=== PATIENT | male | born 1970 | race Caucasian/White ===

== ENCOUNTER 2016-10-30 07:01 | Emergency (ER) | payer MEDICAID ==
[~2016-10-30] VITALS: Ht 175.3 cm; Wt 84.0 kg
[2016-10-30 07:04] VITALS: Ht 175.3 cm; Wt 84.0 kg
[2016-10-30] MEDS ORDERED: morphine 4 MG/ML VIAL IV STA (07:10)
[2016-10-30] MEDS ORDERED: ONDANSETRON 4 MG INJ IV STA ×4 (07:10→10:41)
--- NOTE | 2016-10-30 07:26 | ERA ---
ER Documentation Chief Complaint Date/Time DATE: 10/30/16 TIME: 07:23 Chief Complaint LLQ PAIN W/NAUSEA X2 DAYS HPI This is a 46-year-old male with no past medical history that presents to the emergency department complaining of severe persistent left lower quadrant pain for the past 3 days. 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 The patient is going to hospital and was diagnosed with appendicitis. The patient had an appendectomy. Indicated he stayed in the hospital in [place] for 2 days but left AGAINST MEDICAL ADVICE as he had to finish driving the truck with his father. Therefore the patient removed his domenica on his own and has not received any postoperative care. He states he has had no fevers or shaking or chills but over the past 3 days has had a persistent left lower quadrant pain which is a sharp shooting pain. The pain does not radiate to his back. He denies any hemoptysis hematemesis or melanotic stools. He has been experience in flatulence and no constipation. He is felt nauseous. He did not take any analgesic medication prior to arrival. He indicates his last meal was 12 hours prior to arrival but has had a decrease in appetite since the onset of his pain. He denies any shortness of breath at rest or exertion. He denies any swelling of his lower extremities. He has no chest pain or pressure that radiates to the neck arm back or jaw. Patient's past surgical history other than his appendectomy includes to lower back fusion surgeries several years prior to arrival. The patient quit tobacco 4 months ago. He denies illicit drug use or alcohol use ROS All systems reviewed and are negative except as per history of present illness. Medications Home Meds No Active Prescriptions or Reported Meds Allergies Allergies: Coded Allergies: ibuprofen (Unverified Allergy, Unknown, RASH & TONGUE SWELLING, 10/30/16) ketorolac (Unverified Allergy, Unknown, RASH, TONGUE SWELLING, 10/30/16) Physical Exam Vitals Vital Signs Date Time Temp Pulse Resp B/P Pulse Ox O2 Delivery O2 Flow Rate FiO2 10/30/16 07:41 Nasal Cannula 2 10/30/16 07:04 97.6 85 20 194/110 99 Physical Exam Constitutional:Well-developed. Well-nourished. HEENT:Normocephalic. Atraumatic.Pupils were equal round reactive to light. Dry mucous membranes.No tonsillar exudates. Neck: No nuchal rigidity. No lymphadenopathy. No posterior cervical spine tenderness or step-offs. Respiratory: Not using accessory muscles of respiration.Lungs were clear to auscultation bilaterally. No rhonchi. No rales. No wheezing. Cardiovascular: Regular rate regular rhythm.No murmurs. No rubs were appreciated.S1, S2 normal. Distal pulses are palpable 2+ bilaterally. GI: Abdomen was soft. Tenderness in the left lower quadrant with no rebound and voluntary guarding. Non Distended. No pulsatile abdominal masses or bruits. Bowel sounds were present and normal. Muscle skeletal: Full range of motion of both the upper and lower extremities bilaterally.Normal muscle tone.No assymetrical calf tenderness or swelling. Skin: No petechia, no purpura. No lesions on the palms or the soles of the feet. No maculopapular rash. NEURO: Patient was alert, awake, orientated x3.No facial droop. Gait observed and normal with no ataxia.Speech had regular rate and rhythm. No focal neurological deficits. Result Diagram: 10/30/16 0735 10/30/16 0735 Results 24 hrs Laboratory Tests Test 10/30/16 07:35 10/30/16 07:50 White Blood Count 5.010^3/ul Red Blood Count 3.7910^6/ul Hemoglobin 12.8g/dl Hematocrit 36.8% Mean Corpuscular Volume 97.1fl Mean Corpuscular Hemoglobin 33.8pg Mean Corpuscular Hemoglobin Concent 34.8g/dl Red Cell Distribution Width 13.2% Platelet Count 73101^3/UL Mean Platelet Volume 10.9fl Neutrophils % 62.8% Lymphocytes % 21.5% Monocytes % 9.3% Eosinophils % 5.2% Basophils % 0.8% Nucleated Red Blood Cells % 0.0/100WBC Neutrophils # 3.110^3/ul Lymphocytes # 1.110^3/ul Monocytes # 0.510^3/ul Eosinophils # 0.310^3/ul Basophils # 0.010^3/ul Nucleated Red Blood Cells # 0.010^3/ul Prothrombin Time 11.7Sec Prothrombin Time Ratio 0.9 INR International Normalized Ratio 0.86 Activated Partial Thromboplast Time 29.1Sec Sodium Level 136mmol/L Potassium Level 3.7mmol/L Chloride Level 102mmol/L Carbon Dioxide Level 27mmol/L Anion Gap 11 Blood Urea Nitrogen 9mg/dl Creatinine 0.64mg/dl Glucose Level 82mg/dl Calcium Level 8.8mg/dl Total Bilirubin 0.2mg/dl Direct Bilirubin 0.00mg/dl Indirect Bilirubin 0.2mg/dl Aspartate Amino Transf (AST/SGOT) 20IU/L Alanine Aminotransferase (ALT/SGPT) 24IU/L Alkaline Phosphatase 59IU/L Troponin I < 0.012ng/ml Total Protein 7.3g/dl Albumin 4.2g/dl Globulin 3.10g/dl Albumin/Globulin Ratio 1.35 Amylase Level 36U/L Lipase 45U/L Urine Color LT. YELLOW Urine Clarity CLEAR Urine pH 7.5 Urine Specific [place] 1.015 Urine Ketones NEGATIVE Urine Nitrite NEGATIVE Urine Bilirubin NEGATIVE Urine Urobilinogen 0.2 E.U./dL Urine Leukocyte Esterase NEGATIVE Urine Hemoglobin NEGATIVE Urine Glucose NEGATIVE% Urine Total Protein NEGATIVE Current Medications Medications (Trade) Dose Ordered Sig/Michelle Route PRN Reason Start Time Stop Time Status Last Admin Dose Admin Morphine Sulfate (morphine) 4 mg ONCE STAT IV 10/30/16 07:10 10/30/16 07:12 DC 10/30/16 07:33 Ondansetron HCl (Zofran Inj) 4 mg ONCE STAT IV 10/30/16 07:10 10/30/16 07:12 DC 10/30/16 07:32 Hydromorphone HCl (Dilaudid) 1 mg ONCE STAT IV 10/30/16 08:14 10/30/16 08:15 DC 10/30/16 08:20 Ondansetron HCl (Zofran Inj) 4 mg ONCE STAT IV 10/30/16 08:14 10/30/16 08:15 DC 10/30/16 08:20 IV Flush 10 ml 10 ml STK-MED ONCE .ROUTE 10/30/16 08:57 10/30/16 08:58 DC 10/30/16 09:19 Sodium Chloride (NS) 100 ml @ ud STK-MED ONCE .ROUTE 10/30/16 08:57 10/30/16 08:58 DC 10/30/16 09:19 Iohexol (Omnipaque 300mg/ ml) 30 ml STK-MED ONCE .ROUTE 10/30/16 08:57 10/30/16 08:58 DC 10/30/16 09:20 Hydromorphone HCl (Dilaudid) 1 mg ONCE STAT IV 10/30/16 09:28 10/30/16 09:29 DC 10/30/16 09:38 Ondansetron HCl 4 mg 4 mg ONCE STAT IV 10/30/16 09:28 10/30/16 09:29 DC 10/30/16 09:38 Sodium Chloride (NS) 1,000 ml @ 1,000 mls/hr Q1H STAT IV 10/30/16 09:55 10/30/16 10:54 Procedures/MDM This patient presented to the emergency department with abdominal pain and was seen and evaluated by myself. My differential diagnosis included but was not limited to abdominal aortic aneurysm, appendicitis, pancreatitis, perforated peptic ulcer, perforated viscus, Boerhaaves syndrome or visceral pain such as diverticulitis, DKA, esophagitis, hepatitis or bowel obstruction. The patient was placed on a play therapist, continuous pulse oximetry, and IV access was established by nursing staff. Patient received intravenous morphine and Zofran. I obtained a 12-lead EKG tracing to rule out atypical myocardial infarction and was reviewed by myself which showed: Normal sinus rhythm of 72 bpm and no arrhythmia. NM interval normal. QRS duration normal. No ST segment elevation No ST segment depression. No changes consistent with acute ischemia. I obtained a CT scan of the abdomen due to the severity of the patient's pain. This was reviewed by myself and the radiologist and indicated the followin. Aortoiliac atherosclerotic calcifications are present. 2. The patient is status post appendectomy. 3. Small bilateral fat containing inguinal hernias are noted without incarceration. 4. No urolithiasis or obstructive uropathy is seen. 5. No mass, lymphadenopathy, or focal acute inflammatory process is identified. Please note that the patient was hypertensive upon arrival into the emergency department but showed no signs of endorgan damage to suggest hypertensive emergency or urgency. The patient's blood pressure improved after analgesic medication. The patient received IV morphine Dilaudid Zofran with improvement of his pain. I indicated to the patient that there did not appear to be in a surgical abdomen at this time. There is no evidence of urinary tract infection. There is no leukocytosis. There is no evidence of renal failure or obstructive uropathy. The patient had no physical exam findings to suggest obstruction and CT scan was negative for a postoperative abscess. The patient stated he felt comfortable being discharged home. He received IV fluid resuscitation for his mild clinical dehydration. His nausea completely resolved with antiemetics. He will be sent home with analgesic medication if needed for as needed. The patient was discharged home in fair condition. They were instructed to return to the emergency department at any time if there was any worsening of their condition. The patient stated they would follow up with their PCP in the next 24 -48 hours to initiate a suitable medication regimen under the care of their PCP as well as to allow their PCP to monitor any drug reactions. The patient was discharged home with prescriptions after they gave informed consent to the new medication. They were also fully informed by myself on the adverse effects and adverse drug interactions in order to provide adequate safeguards to prevent possible adverse reactions to medications. Departure Diagnosis: Primary Impression: Abdominal pain Qualified Code: R10.32 - Left lower quadrant pain Condition: CECELIA Gibson Oct 30, 2016 07:26
[2016-10-30 07:54] LABS: ADD SCAN DIFF NO
[2016-10-30 08:02] LABS: BASOPHILS % 0.8 % (0.0-2.0); EOSINOPHILS # 0.3 10^3/ul (0.0-0.5); EOSINOPHILS % 5.2 % (0.0-7.0); HEMATOCRIT 36.8 % (42.0-52.0); HEMOGLOBIN 12.8 g/dl (14.0-18.0); LYMPHOCYTES # 1.1 10^3/ul (0.8-2.9); LYMPHOCYTES % 21.5 % (15.0-51.0); MEAN CORPUSCULAR HEMOGLOBIN 33.8 pg (29.0-33.0); MEAN CORPUSCULAR HGB CONC 34.8 g/dl (32.0-37.0); MEAN CORPUSCULAR VOLUME 97.1 fl (82.0-101.0); MEAN PLATELET VOLUME 10.9 fl (7.4-10.4); MONOCYTE # 0.5 10^3/ul (0.3-0.9); MONOCYTES % 9.3 % (0.0-11.0); NEUTROPHIL # 3.1 10^3/ul (1.6-7.5); NEUTROPHILS % 62.8 % (39.0-77.0); PLATELET COUNT 216 10^3/UL (140-415); RED BLOOD COUNT 3.79 10^6/ul (4.70-6.10); RED CELL DISTRIBUTION WIDTH 13.2 % (11.5-14.5)
[2016-10-30 08:07] LABS: INR 0.86; PARTIAL THROMBOPLASTIN TIME 29.1 Sec (25.0-35.0); PROTIME 11.7 Sec (12.2-14.2); PT RATIO 0.9
[2016-10-30 08:10] LABS: ALBUMIN 4.2 g/dl (3.3-4.9); CHLORIDE 102 mmol/L (97-110); SODIUM 136 mmol/L (135-144)
[2016-10-30 08:11] LABS: POTASSIUM 3.7 mmol/L (3.5-5.1)
[2016-10-30 08:12] LABS: AMYLASE 36 U/L (11-123)
[2016-10-30 08:13] LABS: ALANINE AMINOTRANSFERASE 24 IU/L (13-69); ALBUMIN/GLOBULIN RATIO 1.35; ALKALINE PHOSPHATASE 59 IU/L (42-121); ANION GAP 11 (8-16); ASPARTATE AMINO TRANSFERASE 20 IU/L (15-46); BILIRUBIN,INDIRECT 0.2 mg/dl (0-1.1); BILIRUBIN,TOTAL 0.2 mg/dl (0.2-1.3); BLOOD UREA NITROGEN 9 mg/dl (7-20); CALCIUM 8.8 mg/dl (8.4-10.2); CARBON DIOXIDE 27 mmol/L (21-31); CREATININE 0.64 mg/dl (0.61-1.24); GLUCOSE 82 mg/dl (70-220); TOTAL PROTEIN 7.3 g/dl (6.1-8.1)
[2016-10-30] MEDS ORDERED: HYDROmorphONE 1 MG/ML SYG IV STA ×3 (08:14→10:41)
[2016-10-30 08:28] LABS: TROPONIN-I < 0.012 ng/ml (0.00-0.12)
[2016-10-30 08:29] LABS: ADD UMIC NO; URINE BILIRUBIN (Dip) NEGATIVE (NEGATIVE); URINE BLOOD (Dip) NEGATIVE (NEGATIVE); URINE COLOR LT. YELLOW (YELLOW); URINE GLUCOSE (Dip) NEGATIVE (NEGATIVE); URINE KETONES (Dip) NEGATIVE (NEGATIVE); URINE LEUKOCYTE ESTERASE (Dip) NEGATIVE (NEGATIVE); URINE NITRITE (Dip) NEGATIVE (NEGATIVE); URINE TOTAL PROTEIN (Dip) NEGATIVE (NEGATIVE); URINE UROBILINOGEN (Dip) 0.2 E.U./dL (0.1-1.0)
[2016-10-30] MEDS ORDERED: SOD CHLORIDE 0.9% 100 ML ONE (08:57)
[2016-10-30] MEDS ORDERED: IOHEXOL 300MG/ML 30 ML BTL ONE (08:57)
--- NOTE | 2016-10-30 09:29 | RADRPT ---
PROCEDURE: CT Abdomen and Pelvis with contrast. CLINICAL INDICATION: Left lower quadrant pain TECHNIQUE: CT of the abdomen and pelvis was performed on a multi-detector scanner following the un complicated IV administration of 100 cc of Omnipaque 300. Coronal and sagittal images were reformat tasha from the axial data set. One or more of the following dose reduction techniques were used: auto mated exposure control, adjustment of the mA and/or kV according to patient size, use of iterative reconstruction technique. CTDI = 14.54 mGy. DLP = 858.98 mGy-cm. COMPARISON: None. FINDINGS: CT abdomen: The lung bases are clear. The heart size is normal, without pericardial effusion. Liver, gallbladd er, biliary tree, pancreas, spleen, adrenal glands and kidneys are unremarkable. There is no urolit hiasis or obstructive uropathy. The stomach is grossly unremarkable. There is no abdominal aortic aneurysm or dissection. Aortic vascular calcifications are present. T here is no retroperitoneal lymphadenopathy. The laura hepatis region is clear. CT pelvis: No bowel obstruction, free intraperitoneal air or abscess is identified. There is no diverticulosis , diverticulitis or colitis. The patient is status post appendectomy. Urinary bladder is grossly u nremarkable. No pelvic mass, free fluid or lymphadenopathy is identified. Small bilateral fat cont aining inguinal hernias are noted without incarceration. The surrounding osseous structures are remarkable for degenerative spondylosis of the spine. No ost eolytic or osteoblastic lesion is detected. There is surgical fusion of L4-S1. IMPRESSION: 1. Aortoiliac atherosclerotic calcifications are present. 2. The patient is status post appendectomy. 3. Small bilateral fat containing inguinal hernias are noted without incarceration. 4. No urolithiasis or obstructive uropathy is seen. 5. No mass, lymphadenopathy, or focal acute inflammatory process is identified. RPTAT: EE .Erick Darling MD, MD Date Time Electronically viewed and signed by .Erick Darling MD, MD on 10/30/2016 09:28 .R/
[2016-10-30] MEDS ORDERED: SOD CHLORIDE 0.9% 1,000 ML IV STA (09:55)
[2016-10-30] MEDS ORDERED: HYDR-906 PO (10:27)
[2016-10-30] MEDS ORDERED: ONDA4TAB14 PO (10:27)
[2016-10-30] MEDS ORDERED: DOCU-144 PO (10:27)
[2016-10-30 11:10] VITALS: BP 145/98; PULSE 74; RESP 19; TEMP 98.3
== END 2016-10-30 11:39 | disposition home or self-care (01) ==
LOC: E/R 07:01
DX: R10.32 Left lower quadrant pain (principal); R11.0 Nausea
CPT/HCPCS: 36415; 74177; 80053; 81003; 82150; 83690; 84484; 85025; 85610; 85730; 87040; 87086; 93005; 96374; 96375; 96376; J1170; J2270; J2405; J7030; Q9967; Z7502; Z7610

== ENCOUNTER 2016-10-31 07:32 | Emergency (ER) | payer MEDICAID ==
[~2016-10-31] VITALS: Wt 81.8 kg
[~2016-10-31 07:32] MED LIST: DOCU-144 PO; HYDR-906 PO; ONDA4TAB14 PO
[2016-10-31] MEDS ORDERED: SOD CHLORIDE 0.9% 1,000 ML IV STA (07:41)
[2016-10-31] MEDS ORDERED: FAMOTIDINE 20 MG INJ IV STA (07:41)
[2016-10-31] MEDS ORDERED: HYDROmorphONE 1 MG/ML SYG IV STA ×2 (07:41→09:45)
[2016-10-31] MEDS ORDERED: ONDANSETRON 4 MG INJ IV STA ×2 (07:41→09:45)
--- NOTE | 2016-10-31 07:56 | ERA ---
ER Documentation Chief Complaint Date/Time DATE: 10/31/16 TIME: 07:42 Chief Complaint seen in er for same abdominal pain. nausea no vomiting. not bettter today HPI This is a 46-year-old male with no past medical history that returns to the emergency department complaining of continuing persistent left lower quadrant pain. The patient had been seen and evaluated by myself yesterday for severe left lower quadrant pain that began 4 days prior to arrival. The patient had been treated with IV opiates and IV fluids with resolution of his pain. I also obtained a CT scan of the abdomen which showed no evidence of appendicitis, small bowel obstruction, diverticulitis or perforation. 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 The patient had been given a prescription of Manito for analgesic control but indicates he was unable to have this filled as he had lost his wallet. The patient indicates he has not had any diarrhea or constipation. The patient indicates he had relief of the pain for several hours after he left the hospital but the same pain began in the left lower quadrant. He had an episode of nonbloody nonbilious emesis roughly 2 hours prior to arrival. He states the pain is 10 out of 10 in intensity. The pain does not radiate. It is a sharp shooting pain that is exacerbated with movement. 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 The patient is going to hospital and was diagnosed with appendicitis. The patient had an appendectomy. Indicated he stayed in the hospital in [place] for 2 days but left AGAINST MEDICAL ADVICE as he had to finish driving the truck with his father. Therefore the patient removed his domenica on his own and has not received any postoperative care. He denies any shortness of breath at rest or exertion. He denies any swelling of his lower extremities. He has no chest pain or pressure that radiates to the neck arm back or jaw. Patient's past surgical history other than his appendectomy includes to lower back fusion surgeries several years prior to arrival. The patient quit tobacco 4 months ago. He denies illicit drug use or alcohol use ROS All systems reviewed and are negative except as per history of present illness. Medications Home Meds Active Scripts Ondansetron (Ondansetron Odt) 4 Mg Tab.rapdis, 4 MG PO Q6H Y for NAUSEA AND/OR VOMITING, #10 TAB Prov:CECELIA BURNETT 10/30/16 Docusate Sodium* (Colace*) 100 Mg Capsule, 100 MG PO TID, #30 CAP Prov:CECELIA BURNETT 10/30/16 Hydrocodone/Acetaminophen (Manito 5-325 Tablet) 1 Each Tablet, 1 TAB PO Q6H Y for PAIN, #20 TAB Prov:CECELIA BURNETT 10/30/16 Allergies Allergies: Coded Allergies: ibuprofen (Unverified Allergy, Unknown, RASH & TONGUE SWELLING, 10/30/16) ketorolac (Unverified Allergy, Unknown, RASH, TONGUE SWELLING, 10/30/16) PMhx/Soc Hx Alcohol Use: No Hx Substance Use: No Hx Tobacco Use: No Physical Exam Vitals Vital Signs Date Time Temp Pulse Resp B/P Pulse Ox O2 Delivery O2 Flow Rate FiO2 10/31/16 07:34 98.3 73 21 170/87 98 Physical Exam Constitutional:Well-developed. Well-nourished. HEENT:Normocephalic. Atraumatic.Pupils were equal round reactive to light. Moist mucous membranes.No tonsillar exudates. Neck: No nuchal rigidity. No lymphadenopathy. No posterior cervical spine tenderness or step-offs. Respiratory: Not using accessory muscles of respiration.Lungs were clear to auscultation bilaterally. No rhonchi. No rales. No wheezing. Cardiovascular: Regular rate regular rhythm.No murmurs. No rubs were appreciated.S1, S2 normal. Distal pulses are palpable 2+ bilaterally. GI: Abdomen was soft. Left lower quadrant tenderness with voluntary guarding. Non Distended. No pulsatile abdominal masses or bruits. No rebound. Bowel sounds were present and normal. Muscle skeletal: Full range of motion of both the upper and lower extremities bilaterally.Normal muscle tone.No assymetrical calf tenderness or swelling. Skin: No petechia, no purpura. No lesions on the palms or the soles of the feet. No maculopapular rash. NEURO: Patient was alert, awake, orientated x3.No facial droop. Gait observed and normal with no ataxia.Speech had regular rate and rhythm. No focal neurological deficits. Results 24 hrs Current Medications Medications (Trade) Dose Ordered Sig/Michelle Route PRN Reason Start Time Stop Time Status Last Admin Dose Admin Sodium Chloride (NS) 1,000 ml @ 1,000 mls/hr Q1H STAT IV 10/31/16 07:41 10/31/16 08:40 10/31/16 07:59 Hydromorphone HCl (Dilaudid) 2 mg ONCE STAT IV 10/31/16 07:41 10/31/16 07:43 DC 10/31/16 08:00 Ondansetron HCl (Zofran Inj) 4 mg ONCE STAT IV 10/31/16 07:41 10/31/16 07:43 DC 10/31/16 07:59 Famotidine (Pepcid Iv) 20 mg ONCE STAT IV 10/31/16 07:41 10/31/16 07:43 DC 10/31/16 07:59 Procedures/MDM This patient presented to the emergency department with abdominal pain and was seen and evaluated by myself. My differential diagnosis included but was not limited to abdominal aortic aneurysm, appendicitis, pancreatitis, perforated peptic ulcer, perforated viscus, Boerhaave's syndrome or visceral pain such as diverticulitis, DKA, esophagitis, hepatitis or bowel obstruction. The patient was placed on a patient support partner, continuous pulse oximetry, and IV access was established by nursing staff. The patient received IV Pepcid and Dilaudid and Zofran. The patient had had a CT scan of the abdomen performed yesterday which indicated no acute surgical abdomen or complication such as perforation, postoperative abscess or diverticulitis. The patient is no history of irritable bowel syndrome and has not experienced any cramping bloating or mixed diarrhea or constipation. The patient is not lactose intolerant and therefore unlikely his pain is a result of enzyme deficiency. The patient does not have a history of celiac's disease. There is no evidence of obstructive uropathy on the CT scan performed yesterday that could have been a result of nephrolithiasis causing his pain. The patient also has no history of Crohn's disease or ulcerative colitis and did not show any symptoms of Crohn's disease such as rectal bleeding, fever, weight loss, fatigue or bone loss. The CT scan performed yesterday did not indicate any signs of intestinal obstruction that could have been a result of scar tissue from the patient's recent appendectomy. The patient did not have a palpable inguinal or groin hernia. There is no overlying rash that could suggest shingles as a result of the pain. I will obtain a Clostridium difficile culture as the patient had been placed on IV antibiotics while in [place] but states he did not take any oral antibiotics such as fluoroquinolones, cephalosporins, penicillins and and therefore my clinical suspicion was low as he had not experienced any watery diarrhea but given that he had unexplainable abdominal cramping and tenderness, stool test for C differential will be obtained. The patient denied any testicular pain and no abnormal urethral discharge therefore unlikely the patient was experiencing abdominal pain secondary to gonorrhea chlamydia or testicular torsion. Upon reviewing the [facility] notification, the patient had been admitted September to [facility] for right lower quadrant pain and constipation. The patient also had been admitted to the medical surgical inpatient on September for left lower quadrant pain and also had a visit September 30, 2016 for [facility] for generalized abdominal pain. The patient complained of abdominal pain on October 07 2016 and was evaluated at [facility]. The patient had 2 visits to [facility] for left lower quadrant abdominal pain on October 09, 2016 and October 22, 2016. Patient was also seen at [facility] on October 23 and October 29, 2016. He has been seen by myself yesterday on October 30, [address] [facility]. At this time I approach the patient and indicated that there did not appear to be a surgical etiology at this time. Departure Diagnosis: Primary Impression: Intractable abdominal pain Condition: CECELIA Gibson Oct 31, 2016 07:55
[2016-10-31 08:10] LABS: ADD SCAN DIFF NO
[2016-10-31 08:27] LABS: BASOPHILS % 0.8 % (0.0-2.0); EOSINOPHILS # 0.4 10^3/ul (0.0-0.5); EOSINOPHILS % 7.7 % (0.0-7.0); HEMATOCRIT 39.7 % (42.0-52.0); HEMOGLOBIN 13.7 g/dl (14.0-18.0); INR 0.79; LYMPHOCYTES # 1.1 10^3/ul (0.8-2.9); LYMPHOCYTES % 23.6 % (15.0-51.0); MEAN CORPUSCULAR HEMOGLOBIN 33.6 pg (29.0-33.0); MEAN CORPUSCULAR HGB CONC 34.5 g/dl (32.0-37.0); MEAN CORPUSCULAR VOLUME 97.3 fl (82.0-101.0); MEAN PLATELET VOLUME 10.9 fl (7.4-10.4); MONOCYTE # 0.4 10^3/ul (0.3-0.9); MONOCYTES % 8.9 % (0.0-11.0); NEUTROPHIL # 2.8 10^3/ul (1.6-7.5); NEUTROPHILS % 58.8 % (39.0-77.0); PLATELET COUNT 228 10^3/UL (140-415); PT RATIO 0.9; RED BLOOD COUNT 4.08 10^6/ul (4.70-6.10); RED CELL DISTRIBUTION WIDTH 13.2 % (11.5-14.5); WHITE BLOOD COUNT 4.8 10^3/ul (4.8-10.8)
[2016-10-31 08:28] LABS: ALBUMIN 4.2 g/dl (3.3-4.9); PARTIAL THROMBOPLASTIN TIME 29.5 Sec (25.0-35.0)
[2016-10-31 08:29] LABS: POTASSIUM 3.9 mmol/L (3.5-5.1)
[2016-10-31 08:31] LABS: ALBUMIN/GLOBULIN RATIO 1.4; BILIRUBIN,INDIRECT 0.1 mg/dl (0-1.1); BILIRUBIN,TOTAL 0.1 mg/dl (0.2-1.3); CREATININE 0.67 mg/dl (0.61-1.24); TOTAL PROTEIN 7.2 g/dl (6.1-8.1)
[2016-10-31 08:32] LABS: CALCIUM 9.3 mg/dl (8.4-10.2)
[2016-10-31 09:29] LABS: ADD UMIC NO; URINE BILIRUBIN (Dip) NEGATIVE (NEGATIVE); URINE BLOOD (Dip) NEGATIVE (NEGATIVE); URINE COLOR LT. YELLOW (YELLOW); URINE GLUCOSE (Dip) NEGATIVE (NEGATIVE); URINE KETONES (Dip) NEGATIVE (NEGATIVE); URINE LEUKOCYTE ESTERASE (Dip) NEGATIVE (NEGATIVE); URINE NITRITE (Dip) NEGATIVE (NEGATIVE); URINE TOTAL PROTEIN (Dip) NEGATIVE (NEGATIVE); URINE UROBILINOGEN (Dip) 0.2 E.U./dL (0.1-1.0)
[2016-10-31 10:25] VITALS: BP 147/97; PULSE 80; RESP 16
[2016-10-31 13:27] LABS: BENZODIAZEPINES Negative (NEGATIVE)
[2016-10-31 13:35] LABS: BARBITURATES Negative (NEGATIVE); CANNABINOIDS Positive (NEGATIVE); COCAINE Negative (NEGATIVE); OPIATES Positive (NEGATIVE)
== END 2016-10-31 10:25 | disposition home or self-care (01) ==
LOC: E/R 07:32
DX: R10.32 Left lower quadrant pain (principal); R11.0 Nausea
CPT/HCPCS: 80053; 80307; 81003; 82150; 83690; 85025; 85610; 85730; 87591; 96374; 96375; 96376; J1170; J2405; J7030; Z7502; Z7610

== ENCOUNTER 2016-11-30 08:05 | Emergency (ER) | payer MEDICAID ==
[~2016-11-30] VITALS: Ht 177.8 cm; Wt 78.0 kg
[2016-11-30 08:14] VITALS: Ht 177.8 cm; Wt 78.0 kg
[2016-11-30] MEDS ORDERED: HYDROCODONE/APAP (5/325) TAB PO ONE (08:30)
--- NOTE | 2016-11-30 08:48 | ERD ---
ER Documentation Chief Complaint Date/Time DATE: 11/30/16 TIME: 08:43 Chief Complaint back pain after a fall HPI 46-year-old male presents emergency room with a slip and fall and is complaining of mid, lower back as well as left-sided posterior pelvic pain after falling this morning. Pain is moderate to severe, sharp. It is worse when he is sitting or moving, and better lying flat. This patient states he was walking, actually slipped and hit the middle of his back. He has a history of 5 surgeries, the last time he had chronic back pain issues was in 2007 or 9 patient states. There is no saddle anesthesia loss of bowel bladder function. He denies any other injuries. ROS All systems reviewed and are negative except as per history of present illness. Medications Home Meds Active Scripts Ondansetron (Ondansetron Odt) 4 Mg Tab.rapdis, 4 MG PO Q6H Y for NAUSEA AND/OR VOMITING, #10 TAB Prov:CECELIA BURNETT 10/30/16 Docusate Sodium* (Colace*) 100 Mg Capsule, 100 MG PO TID, #30 CAP Prov:CECELIA BURNETT 10/30/16 Hydrocodone/Acetaminophen ([place] 5-325 Tablet) 1 Each Tablet, 1 TAB PO Q6H Y for PAIN, #20 TAB Prov:CECELIA BURNETT 10/30/16 Allergies Allergies: Coded Allergies: ibuprofen (Unverified Allergy, Unknown, RASH & TONGUE SWELLING, 11/30/16) ketorolac (Unverified Allergy, Unknown, RASH, TONGUE SWELLING, 11/30/16) PMhx/Soc History of Surgery: Yes (appendectomy, back surgeries) Anesthesia Reaction: No Hx Neurological Disorder: No Hx Respiratory Disorders: No Hx Cardiac Disorders: No Hx Psychiatric Problems: No Hx Miscellaneous Medical Probl: No Hx Alcohol Use: No Hx Substance Use: No Hx Tobacco Use: No Smoking Status: Never smoker Physical Exam Vitals Vital Signs Date Time Temp Pulse Resp B/P Pulse Ox O2 Delivery O2 Flow Rate FiO2 11/30/16 08:14 97.1 90 155 150/94 99 Physical Exam General: Well-developed, well-nourished. The patient appears in no acute distress. HEENT: Head is normocephalic, atraumatic. No scleral icterus. Neck: Supple. Nontender. Lungs: Clear to auscultation. Normal air movement. Heart: Regular rate and rhythm. S1 and S2 are normal. No murmurs, gallops, or rubs. Abdomen: Soft, nontender, nondistended. Bowel sounds are normoactive. Back: Diffuse paraspinal tenderness of thoracic and lumbar spine, no bony deformities, no rash, there is scar in the lumbar region from previous surgery. Tenderness over the left lumbosacral region, he has full range of motion with bilateral hip flexion and extension. Strength lower extremities 5 out of 5 bilaterally. Extremities: No clubbing or cyanosis. Normal pulses. Moving extremities x 4. No weakness. Neurologic: Alert and oriented 3. No focal deficits. Skin: Normal turgor. No rash or lesions. Results 24 hrs Current Medications Medications (Trade) Dose Ordered Sig/Michelle Route PRN Reason Start Time Stop Time Status Last Admin Dose Admin Acetaminophen/ Hydrocodone Bitart ([place] (5/325)) 1 tab ONCE ONCE PO 11/30/16 08:30 11/30/16 08:31 DC 11/30/16 08:42 Morphine Sulfate (morphine) 4 mg ONCE ONCE IM 11/30/16 09:30 11/30/16 09:31 DC 11/30/16 09:32 Morphine Sulfate (morphine) 6 mg ONCE ONCE IM 11/30/16 10:30 11/30/16 10:31 DC 11/30/16 10:46 Diazepam (Valium) 5 mg ONCE ONCE IM 11/30/16 10:30 11/30/16 10:31 DC 11/30/16 10:45 PROCEDURE: Thoracic spine Single limited CLINICAL INDICATION: Fall. TECHNIQUE: Single limited AP view of the thoracic spine COMPARISON: None. FINDINGS: Mild dextroscoliosis of the upper thoracic spine centered at T5 . No gross evidence of vertebral body fracture, loss of height, or rib fracture. IMPRESSION: Limited AP view mass evidence of acute. RPTAT:AAJJ Physician El Date Time Electronically viewed and signed by Physician El on 11/30/2016 12:14 JING/ PROCEDURE: Lumbar x-ray CLINICAL INDICATION: Fall with back pain. TECHNIQUE: A single limited AP view of the lumbar spine. COMPARISON: None. FINDINGS: Posterior spinous process fixation plates stabilizing L3-S1. L5-S1 are anterior lumbar discectomy and fusion with interbody graft in place anterior interlocking fixation screws. IMPRESSION: No fracture. Limited single AP view. The fixation hardware in place. RPTAT:AAJJ Leonides Norman, Physician Date Time Electronically viewed and signed by Leonides Norman Physician on 11/30/2016 12:18 JING/ PROCEDURE: Pelvis x-ray CLINICAL INDICATION: Fall. Pain. TECHNIQUE: Single AP view of the pelvis performed. COMPARISON: None FINDINGS: Normal mineralization, architecture and alignment. Lumbar fusion of L5-S1. No fracture or osseous lesion identified. No asymmetric at joint space narrowing or widening. The sacroiliac joints are symmetric and normal appearance. There are no significant degenerative changes. Unremarkable soft tissues. IMPRESSION: 1.No acute fracture or subluxation. RPTAT:AAJJ Leonides Norman, Physician Date Time Electronically viewed and signed by Physician El on 11/30/2016 11:46 JING/ CC: REYMUNDO ALMONTE PA-C Procedures/[facility] ED course: Patient has previously been here for abdominal pain. CURES report was done, no records for the last 12 months. Patient was given [place] 5/325 mg by mouth for pain. I advised that we would like to start this medication because he reports that he is allergic to ibuprofen and Toradol. Patient was difficult with getting x-rays, he refused to do further views unless he was medicated. He was given morphine 4 mg IM. He then requested more pain medication states that he did not want to get x-rays , he states that he was was still in 10 out of 10 pain and he was given morphine 6 mg and Valium 5 mg IM. He was called from the waiting room multiple times, it appears that the patient has eloped from the emergency room. MDM: 46-year-old male presents with diffuse back pain status post fall. Patient had traumatic history of back pain, x-rays were obtained, there is no evidence of acute fracture or subluxation on the one view of the lumbar thoracic spine and no fracture on the pelvis. Given that the patient eloped and was requesting multiple pain medications, it was concerning for drug- seeking behavior. He does not show any signs of cauda equina, epidural abscess , epidural hematoma, or any neurologic compromise. Departure Diagnosis: Primary Impression: Back pain Condition: Good REYMUNDO ALMONTE PA-C Nov 30, 2016 08:48
[2016-11-30] MEDS ORDERED: morphine 10 MG INJ IM ONE ×2 (09:30→10:30)
[2016-11-30] MEDS ORDERED: DIAZEPAM 5 MG/ML SYG IM ONE (10:30)
--- NOTE | 2016-11-30 11:46 | RADRPT ---
PROCEDURE: Pelvis x-ray CLINICAL INDICATION: Fall. Pain. TECHNIQUE: Single AP view of the pelvis performed. COMPARISON: None FINDINGS: Normal mineralization, architecture and alignment. Lumbar fusion of L5-S1. No fracture or osseous lesion identified. No asymmetric at joint space narrowing or widening. The sacroiliac joints are symmetric and normal appearance. There are no significant degenerative changes. Unremarkable soft tissues. IMPRESSION: 1.No acute fracture or subluxation. RPTAT:AAJJ Physician El Date Time Electronically viewed and signed by Physician El on 11/30/2016 11:46 JING/
--- NOTE | 2016-11-30 12:14 | RADRPT ---
PROCEDURE: Thoracic spine Single limited CLINICAL INDICATION: Fall. TECHNIQUE: Single limited AP view of the thoracic spine COMPARISON: None. FINDINGS: Mild dextroscoliosis of the upper thoracic spine centered at T5 . No gross evidence of vertebral tariq dy fracture, loss of height, or rib fracture. IMPRESSION: Limited AP view mass evidence of acute. RPTAT:AAJJ Physician El Date Time Electronically viewed and signed by Physician El on 11/30/2016 12:14 JING/
--- NOTE | 2016-11-30 12:18 | RADRPT ---
PROCEDURE: Lumbar x-ray CLINICAL INDICATION: Fall with back pain. TECHNIQUE: A single limited AP view of the lumbar spine. COMPARISON: None. FINDINGS: Posterior spinous process fixation plates stabilizing L3-S1. L5-S1 are anterior lumbar discectomy a nd fusion with interbody graft in place anterior interlocking fixation screws. IMPRESSION: No fracture. Limited single AP view. The fixation hardware in place. RPTAT:AAJJ Leonides Norman Physician Date Time Electronically viewed and signed by Physician El on 11/30/2016 12:18 JNIG/
== END 2016-11-30 14:19 | disposition home or self-care (01) ==
LOC: FTE 08:05
DX: M54.5 Low back pain (principal); Z04.3 Encounter for examination and observation following other accident
CPT/HCPCS: 72020; 72170; J2270; J3360; Z7610; 96372

== ENCOUNTER 2017-02-07 15:22 | Emergency (ER) | payer MEDICAID, OTHER ==
[~2017-02-07] VITALS: Ht 175.3 cm; Wt 88.0 kg
[2017-02-07 15:24] VITALS: Ht 175.3 cm; Wt 88.0 kg
[2017-02-07] MEDS ORDERED: morphine 4 MG/ML VIAL IV STA (15:36)
[2017-02-07] MEDS ORDERED: SOD CHLORIDE 0.9% 1,000 ML IV STA (15:36)
[2017-02-07] MEDS ORDERED: ONDANSETRON 4 MG INJ IV STA (15:36)
[2017-02-07] MEDS ORDERED: SOD CHLORIDE 0.9% 100 ML ONE (15:41)
[2017-02-07] MEDS ORDERED: IOHEXOL 300MG/ML 150 ML BTL ONE (15:41)
[2017-02-07 15:56] LABS: ADD SCAN DIFF NO
[2017-02-07 15:57] LABS: BASOPHILS % 0.1 % (0.0-2.0); HEMATOCRIT 38.3 % (42.0-52.0); HEMOGLOBIN 13.5 g/dl (14.0-18.0); LYMPHOCYTES # 0.7 10^3/ul (0.8-2.9); LYMPHOCYTES % 8.9 % (15.0-51.0); MEAN CORPUSCULAR HEMOGLOBIN 34.4 pg (29.0-33.0); MEAN CORPUSCULAR HGB CONC 35.2 g/dl (32.0-37.0); MEAN CORPUSCULAR VOLUME 97.5 fl (82.0-101.0); MEAN PLATELET VOLUME 10.5 fl (7.4-10.4); MONOCYTE # 0.1 10^3/ul (0.3-0.9); NEUTROPHIL # 7.5 10^3/ul (1.6-7.5); NEUTROPHILS % 89.8 % (39.0-77.0); PLATELET COUNT 221 10^3/UL (140-415); RED BLOOD COUNT 3.93 10^6/ul (4.70-6.10); RED CELL DISTRIBUTION WIDTH 13.8 % (11.5-14.5); WHITE BLOOD COUNT 8.3 10^3/ul (4.8-10.8)
[2017-02-07 16:00] LABS: ADD UMIC NO; UR ASCORBIC ACID NEGATIVE (NEGATIVE); UR BILIRUBIN (Dip) NEGATIVE (NEGATIVE); UR BLOOD (Dip) NEGATIVE (NEGATIVE); UR CLARITY SLIGHTLY CLOUDY (CLEAR); UR COLOR YELLOW (YELLOW); UR GLUCOSE (Dip) NEGATIVE (NEGATIVE); UR KETONES (Dip) NEGATIVE (NEGATIVE); UR LEUKOCYTE ESTERASE (Dip) NEGATIVE Leu/ul (NEGATIVE); UR MUCUS FEW /HPF (NONE SEEN); UR NITRITE (Dip) NEGATIVE (NEGATIVE); UR RBC 4 /HPF (0-5); UR SPECIFIC GRAVITY (Dip) 1.024 (1.003-1.030); UR TOTAL PROTEIN (Dip) NEGATIVE (NEGATIVE); UR UROBILINOGEN (Dip) 1+ mg/dL (NEGATIVE)
[2017-02-07 16:12] LABS: INR 0.86; PROTIME 11.7 Sec (12.2-14.2); PT RATIO 0.9
[2017-02-07 16:13] LABS: PARTIAL THROMBOPLASTIN TIME 28.9 Sec (25.0-35.0)
--- NOTE | 2017-02-07 16:16 | RADRPT ---
PROCEDURE: CT Chest, Abdomen and Pelvis with contrast. CLINICAL INDICATION: Trauma workup. TECHNIQUE: CT scan of the chest, abdomen, and pelvis with contrast was performed on a multi-detect or high-resolution CT scanner. The patient was scanned following the uncomplicated intravenous adm inistration of 100 cc of Omnipaque 300 intravenous contrast. Coronal and sagittal reformatted imag es were obtained from the axial source images. Images were reviewed on a [facility] The total exam CTDI equals 15.29 mGy and the total exam DLP equals 1144.76 mGy-cm. One or more of the following dose reduction techniques were used: Automated exposure control. Adjustment of the mA and/or kV according to patient size. Use of iterative reconstruction technique. COMPARISON: CT abdomen and pelvis 10/22/2016. FINDINGS: CT chest: The lungs are clear. There is mild paraseptal emphysema in the lung apices. No focal opacification, effusion, pneumothorax, edema, or nodules are seen. There is no acute infiltrate. The mediastinum is unremarkable without evidence for mass or lymphadenopathy. The vascular structur es of the mediastinum are normal in course and caliber. Aortic vascular calcifications and coronary artery calcifications are present. The heart size is normal without evidence for pericardial thicke bishop or effusion. The axillary regions, subpectoral regions, and supraclavicular regions are all unr emarkable. CT abdomen: The liver is normal in size and density without focal mass or intrahepatic biliary dilatation. The spleen is normal in size and homogeneous in density. The stomach is partially collapsed, but is vonnie ssly unremarkable. The pancreas as visualized is normal. The gallbladder and biliary tree are unre markable and there is no evidence for biliary dilatation. The adrenal glands are symmetric and norm al. The kidneys are symmetrically unremarkable as well. No renal calculus or obstructive uropathy or mass lesion is seen. The aorta is of normal caliber. Aortic vascular calcifications are present. There is no retroperit stein lymphadenopathy. The laura hepatis region is clear. The bowel and mesentery, as visualized, are equally unremarkable. CT pelvis: The small bowel loops situated within the pelvis are unremarkable. There are fat-containing small bi lateral inguinal hernias. The pelvic organs are normal. The pelvic sidewalls and inguinal regions a re clear. The sigmoid colon and rectum are all unremarkable. No mass, lymphadenopathy, or free flu id is seen. No acute inflammation is seen. There are postsurgical changes of spinal fusion at L3-S1 with interspinous fixation device at L3-L4 through L5-S1 and anterior interbody fusion device at L5 -S1 which is posteriorly displaced. Obliquely oriented screws at S1 projects into the superior aspe ct of the S1 neural foramina. The surrounding osseous structures are remarkable for degenerative spo ndylosis of the spine. No osteolytic or osteoblastic lesion is detected. IMPRESSION: Chest: 1. No acute traumatic abnormality. 2. Minimal paraseptal emphysema in the lung apices. 3. Scattered aortic and coronary artery calcifications. Abdomen and pelvis: 1. No acute traumatic abnormality. 2. Aortoiliac atherosclerosis. 3. Bilateral fat containing small inguinal hernias 4. Status post spinal fusion at L3-S1. No change in position of posteriorly displaced L5-S1 interbo dy spacer with obliquely oriented screws at S1 projecting into the bilateral S1 neural foramina. RPTAT: BB .Yamile Muller MD, MD Date Time Electronically viewed and signed by .Yamile Muller MD, on 02/07/2017 16:16 .O/
[2017-02-07 16:17] LABS: ALANINE AMINOTRANSFERASE 33 IU/L (13-69); ALBUMIN 4.9 g/dl (3.3-4.9); ALBUMIN/GLOBULIN RATIO 1.63; ALKALINE PHOSPHATASE 54 IU/L (42-121); ANION GAP 15 (8-16); ASPARTATE AMINO TRANSFERASE 33 IU/L (15-46); BILIRUBIN,INDIRECT 0.2 mg/dl (0-1.1); BILIRUBIN,TOTAL 0.2 mg/dl (0.2-1.3); BLOOD UREA NITROGEN 13 mg/dl (7-20); CALCIUM 9.7 mg/dl (8.4-10.2); CARBON DIOXIDE 25 mmol/L (21-31); CHLORIDE 103 mmol/L (97-110); CREATININE 0.67 mg/dl (0.61-1.24); GLUCOSE 154 mg/dl (70-220); POTASSIUM 4.6 mmol/L (3.5-5.1); SODIUM 138 mmol/L (135-144); TOTAL PROTEIN 7.9 g/dl (6.1-8.1)
[2017-02-07] MEDS ORDERED: morphine 10 MG INJ IV ONE (16:30)
[2017-02-07 16:34] LABS: TROPONIN-I < 0.012 ng/ml (0.00-0.12)
--- NOTE | 2017-02-07 16:36 | RADRPT ---
PROCEDURE: Chest Radiograph. CLINICAL INDICATION: Abdominal pain TECHNIQUE: Single frontal chest radiograph. COMPARISON: None available FINDINGS: The cardiomediastinal silhouette is within normal limits. No infiltrate or effusion is seen. Th e bones are intact. IMPRESSION: 1. Unremarkable chest radiograph. RPTAT: KK .Abhishek Mejia MD, MD Date Time Electronically viewed and signed by .Abhishek Mejia MD, on 02/07/2017 16:36 .B/
--- NOTE | 2017-02-07 16:37 | RADRPT ---
PROCEDURE: XR Pelvis. CLINICAL INDICATION: Pelvic pain TECHNIQUE: Single AP view of the pelvis. COMPARISON: CT chest abdomen pelvis 02/07/2017 FINDINGS: There is normal mineralization and alignment of the bones of the pelvis. There is no evidence of ac jackson fracture or dislocation. The femoral acetabular joints appear within normal limits. The sacroi liac joints are grossly unremarkable. The sacrum itself is suboptimally visualized due to overlying bowel gas and contrast in the urinary bladder. Contrast is noted within the urinary bladder. . Lum bar spinal hardware is incidentally noted IMPRESSION: 1. No evidence of acute fracture or dislocation. RPTAT: KK .Abhishek Mejia MD, MD Date Time Electronically viewed and signed by .Abhishek Mejia MD, on 02/07/2017 16:37 .B/
[2017-02-07] MEDS ORDERED: HYDROmorphONE 1 MG/ML SYG IV STA ×2 (16:49→17:24)
--- NOTE | 2017-02-07 16:53 | ERD ---
ER Documentation Chief Complaint Date/Time DATE: 02/07/17 TIME: 16:49 Chief Complaint ap s/p 45 gallon trailer fell on top of his abdomen HPI This is a 46-year-old male who presents to the emergency room for evaluation of abdominal pain. This patient states that he was changing a tire on a trailer that he was touring on the back of his car and stated that Brett that was holding a trailer up got dislodged in the trailer fell on his abdomen. He states that ventricular is a 45 gallon trailer and he states his son helped pick it up to help remove him from under the trailer. He states he is having pain and localizes to the lower portion of his abdomen. He denies any bleeding after this occurred and denies any head injury or loss of consciousness. He denies being on any blood thinners ROS All systems reviewed and are negative except as per history of present illness. Medications Home Meds Discontinued Scripts Ondansetron (Ondansetron Odt) 4 Mg Tab.rapdis, 4 MG PO Q6H Y for NAUSEA AND/OR VOMITING, #10 TAB Prov:CECELIA BURNETT 10/30/16 Docusate Sodium* (Colace*) 100 Mg Capsule, 100 MG PO TID, #30 CAP Prov:CECELIA BURNETT 10/30/16 Hydrocodone/Acetaminophen ([place] 5-325 Tablet) 1 Each Tablet, 1 TAB PO Q6H Y for PAIN, #20 TAB Prov:CECELIA BURNETT 10/30/16 Allergies Allergies: Coded Allergies: ibuprofen (Unverified Allergy, Unknown, RASH & TONGUE SWELLING, 02/07/17) ketorolac (Unverified Allergy, Unknown, RASH, TONGUE SWELLING, 02/07/17) PMhx/Soc History of Surgery: Yes (appendectomy, back surgeries) Anesthesia Reaction: No Hx Neurological Disorder: No Hx Respiratory Disorders: No Hx Cardiac Disorders: No Hx Psychiatric Problems: No Hx Miscellaneous Medical Probl: No Hx Alcohol Use: No Hx Substance Use: No Hx Tobacco Use: No Smoking Status: Never smoker Physical Exam Vitals Vital Signs Date Time Temp Pulse Resp B/P Pulse Ox O2 Delivery O2 Flow Rate FiO2 02/07/17 15:24 97.8 93 20 132/78 99 Physical Exam INITIAL VITAL SIGNS: Reviewed by me GENERAL: The patient is well developed and appropriate for usual state of health in no apparent distress HEENT: Pupils equal, round, and reactive to light. EOMI. There is no scleral icterus. NECK: C-spine is soft and supple, there is no meningismus. There is no cervical lymphadenopathy. LUNGS: Clear to auscultation bilaterally. There are no rales, wheezes or rhonchi. HEART: Regular rate and rhythm, no murmurs, clicks, rubs or gallops. ABDOMEN: Tenderness to palpation right lower quadrant and left lower quadrant, negative Saravia Owen sign, negative colon sign, bowel sounds all 4 quadrants, no guarding EXTREMITIES: There is no peripheral cyanosis or edema. No focal swelling or erythema. NEUROLOGICAL: The patient moves all four extremities with 5/5 strength. Cranial nerves II - XII are intact. Normal gait. Alert and oriented SKIN: There is no apparent rash or petechiae. HEME/LYMPHATIC: There is no evidence of excessive bruising or lymphedema. PSYCHIATRIC: The patient does not appear anxious or depressed. Result Diagram: 02/07/17 1545 02/07/17 1545 Results 24 hrs Laboratory Tests Test 02/07/17 15:45 02/07/17 15:48 White Blood Count 8.310^3/ul Red Blood Count 3.9310^6/ul Hemoglobin 13.5g/dl Hematocrit 38.3% Mean Corpuscular Volume 97.5fl Mean Corpuscular Hemoglobin 34.4pg Mean Corpuscular Hemoglobin Concent 35.2g/dl Red Cell Distribution Width 13.8% Platelet Count 16943^3/UL Mean Platelet Volume 10.5fl Neutrophils % 89.8% Lymphocytes % 8.9% Monocytes % 1.0% Eosinophils % 0.0% Basophils % 0.1% Nucleated Red Blood Cells % 0.0/100WBC Neutrophils # 7.510^3/ul Lymphocytes # 0.710^3/ul Monocytes # 0.110^3/ul Eosinophils # 0.010^3/ul Basophils # 0.010^3/ul Nucleated Red Blood Cells # 0.010^3/ul Prothrombin Time 11.7Sec Prothrombin Time Ratio 0.9 INR International Normalized Ratio 0.86 Activated Partial Thromboplast Time 28.9Sec Sodium Level 138mmol/L Potassium Level 4.6mmol/L Chloride Level 103mmol/L Carbon Dioxide Level 25mmol/L Anion Gap 15 Blood Urea Nitrogen 13mg/dl Creatinine 0.67mg/dl Glucose Level 154mg/dl Calcium Level 9.7mg/dl Total Bilirubin 0.2mg/dl Direct Bilirubin 0.00mg/dl Indirect Bilirubin 0.2mg/dl Aspartate Amino Transf (AST/SGOT) 33IU/L Alanine Aminotransferase (ALT/SGPT) 33IU/L Alkaline Phosphatase 54IU/L Troponin I < 0.012ng/ml Total Protein 7.9g/dl Albumin 4.9g/dl Globulin 3.00g/dl Albumin/Globulin Ratio 1.63 Lipase 39U/L Urine Color YELLOW Urine Clarity SLIGHTLY CLOUDY Urine pH 6.0 Urine Specific [place] 1.024 Urine Ketones NEGATIVEmg/dL Urine Nitrite NEGATIVEmg/dL Urine Bilirubin NEGATIVEmg/dL Urine Urobilinogen 1+mg/dL Urine Leukocyte Esterase NEGATIVELeu/ul Urine Microscopic RBC 4/HPF Urine Microscopic WBC 1/HPF Urine Mucus FEW/HPF Urine Hemoglobin NEGATIVEmg/dL Urine Glucose NEGATIVEmg/dL Urine Total Protein NEGATIVEmg/dl Current Medications Medications (Trade) Dose Ordered Sig/Michelle Route PRN Reason Start Time Stop Time Status Last Admin Dose Admin Sodium Chloride (NS) 1,000 ml @ 1,000 mls/hr Q1H STAT IV 02/07/17 15:36 02/07/17 16:35 DC 02/07/17 15:53 Morphine Sulfate (morphine) 4 mg ONCE STAT IV 02/07/17 15:36 02/07/17 15:39 DC 02/07/17 15:53 Ondansetron HCl (Zofran Inj) 4 mg ONCE STAT IV 02/07/17 15:36 02/07/17 15:39 DC 02/07/17 15:53 IV Flush 10 ml 10 ml STK-MED ONCE .ROUTE 02/07/17 15:41 02/07/17 15:42 DC 02/07/17 16:01 Sodium Chloride (NS) 100 ml @ ud STK-MED ONCE .ROUTE 02/07/17 15:41 02/07/17 15:42 DC 02/07/17 16:01 Iohexol (Omnipaque 300mg/ ml) 150 ml STK-MED ONCE .ROUTE 02/07/17 15:41 02/07/17 15:42 DC 02/07/17 16:01 Morphine Sulfate (morphine) 6 mg ONCE ONCE IV 02/07/17 16:30 02/07/17 16:31 DC 02/07/17 16:26 Procedures/MDM Chest X-ray 1V Interpreted by me: Soft Tissue: No acute abnormalities Bones: No acute abnormalities Mediastinum/Cardiac Silhouette/Lungs: [No acute abnormalities] X-ray Pelvis 1V Interpreted by me: Bones: [No fracture] Joints: [No dislocation] Foreign body: [None] EKG: Rate/Rhythm: [Normal Sinus Rhythm] QRS, ST, T-waves: [No changes consistent w/ acute ischemia] Impression: [No evidence of ischemia or arrhythmia] CT chest abdomen pelvis with IV contrast: Chest: 1. No acute traumatic abnormality. 2. Minimal paraseptal emphysema in the lung apices. 3. Scattered aortic and coronary artery calcifications. Abdomen and pelvis: 1. No acute traumatic abnormality. 2. Aortoiliac atherosclerosis. 3. Bilateral fat containing small inguinal hernias 4. Status post spinal fusion at L3-S1. No change in position of posteriorly displaced L5-S1 interbody spacer with obliquely oriented screws at S1 projecting into the bilateral S1 neural foramina. This 46-year-old male presents to the emergency room after a 46 gallon trailer fell on top of his abdomen. The patient did have tenderness to palpation on my examination in the right and left lower quadrants. The patient underwent a CT of the chest abdomen pelvis which does not reveal any signs of hollow viscus injury, or organ rupture or any exsanguination into the peritoneal cavity. This patient is hemodynamically stable. He is able to urinate at this time. I doubt bladder rupture given the fact that the patient is able to urinate at this time. The patient has no bruising over the abdomen or over the back which would indicate slow retroperitoneal hemorrhage. The patient is hemodynamically stable at this time. Pain is controlled with morphine and Dilaudid. He will be discharged at this time with a prescription for [place] at home and instructions to return immediately to the emergency room if he were to develop any worsening pain or bruising on abdomen. He did verbalize understanding and is okay to plan of care. Departure Diagnosis: Primary Impression: Blunt abdominal trauma Additional Impressions: Abdominal pain Crushing injury of abdomen Condition: Stable JACQUELYN BOONE DO Feb 07, 2017 16:53
[2017-02-07] MEDS ORDERED: HYDR-906 PO (16:54)
[2017-02-07 17:54] VITALS: BP 143/97; PULSE 77; RESP 12; TEMP 98
--- NOTE | 2017-02-07 18:48 | RADRPT ---
PROCEDURE: CT chest/abdomen/pelvis with contrast. CLINICAL INDICATION: Trauma. TECHNIQUE: CT of the chest/abdomen/pelvis was performed utilizing axial images with reconstruction s in sagittal and coronal planes following the intravenous administration of 100 cc of Omnipaque-300 contrast. The administered radiation dose is CTDI 15.29 mGy, DLP 1144.76 mGy-cm. One or more of the following dose reduction techniques were used: Automated exposure control, Adjustment of the mA and /or kV according to patient size, or Use of iterative reconstruction technique. COMPARISON: Noncontrast CT of the abdomen/pelvis from October 30, 2016. FINDINGS: CHEST: Chest wall and lower neck: The thyroid is unremarkable.There is no axillary adenopathy. Heart: The heart is normal size without pericardial effusion. Vessels: The aorta is normal in caliber.There is no evidence of vascular injury. Mediastinum and lucina: There is no hilar adenopathy.No mediastinal adenopathy is identified. Lung and large airways: The trachea and tracheobronchial tree patent. The trachea is prominent.Ther e is no focal consolidation. There is small right apical blebs. There is minimal bibasilar atelecta sis. No pulmonary contusion is identified. Pleura: There is no pleural effusion. There is no pneumothorax. ABDOMEN: Gastrointestinal tract: There is no evidence of bowel injury or obstruction. The appendix is not vis ualized. No abnormal colonic wall thickening is identified.There is no pneumoperitoneum.There is no ascites. Liver: The liver is normal in size without focal lesion or evidence of injury. There is hepatic fatt y infiltration. There is no intrahepatic ductal dilatation. Gallbladder: The gallbladder is grossly unremarkable. Pancreas: The pancreas is grossly unremarkable. Spleen: The spleen is normal in size without focal lesion or evidence of injury. Kidneys: The kidneys are normal in size and contour. No renal calculi identified.There is no evidenc e of hydronephrosis. Adrenal glands: The bilateral adrenal glands are unremarkable. Retroperitoneum: The aorta is normal in caliber.There is no retroperitoneal hemorrhage. PELVIS: Pelvic organs: The prostate is mildly enlarged measuring 4.5 cm. There are coarse calcifications in the prostate which may represent chronic prostatitis. Bladder: The bladder is unremarkable. There is no pelvic free fluid.No pelvic adenopathy is identified. There is a small left fat containi ng inguinal hernia. Osseous structures: No destructive lytic or blastic osseous lesion is identified.No acute fracture i s identified. There are interbody spacers at L3-L4, L4-5, L5-S1. There also anterior oblique interb chandrakant screws at the L5-S1 level which extend into the bilateral lateral recesses. Evaluation is limite d due to streak artifact within this region. There are X stop devices from the L3-L4 to the L5-S1 le vels. There are bilateral L3 laminectomies, bilateral L4 laminotomies, and bilateral L5 laminotomie s. Evaluation is limited due to streak artifact within this region. There is a stable nonspecific 1. 2 cm peripherally sclerotic hypodense lesion within the right iliac bone (image 198 series 3). IMPRESSION: 1. No evidence of organ injury or ascites. 2. No acute fracture. 3. Small right apical blebs. 4. The trachea is prominent. Correlate clinically. 5. Mild hepatic fatty infiltration. Correlate with LFTs. 6. Orthopedic fixation hardware within the lumbar spine as detailed above. The bilateral oblique L 5 screws extend into the bilateral L5-S1 lateral recesses. This may contact the descending bilatera l S1 nerve roots. Evaluation is limited due to streak artifact within this region. 7. Stable nonspecific 1.2 cm peripherally sclerotic hypodense lesion within the right iliac bone. Further findings as detailed above. RPTAT: PP .Maurice Pack MD, Date Time Electronically viewed and signed by .Maurice Pack MD, on 02/07/2017 18:48 .F/
== END 2017-02-07 17:47 | disposition home or self-care (01) ==
LOC: E/R 15:22
DX: S38.1XXA Crushing injury of abdomen, lower back, and pelvis, initial encounter (principal); W20.8XXA Other cause of strike by thrown, projected or falling object, initial encounter; Y92.9 Unspecified place or not applicable
CPT/HCPCS: 36415; 71010; 71260; 72170; 74177; 80053; 81001; 81003; 83690; 84484; 85025; 85610; 85730; 96374; 96375; 96376; 99285; J1170; J2270; J2405; J7030; Q9967

== ENCOUNTER → 2017-02-08 | Emergency (ER) | payer SELFPAY ==
[~2017-02-08] VITALS: Ht 175.3 cm; Wt 81.0 kg
[~2017-02-08] MED LIST changes: -DOCU-144 PO; -ONDA4TAB14 PO; +morphine 10 MG INJ IM ONE
[2017-02-08 06:54] VITALS: Ht 175.3 cm; Wt 81.0 kg
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
== END | disposition left against medical advice (07) ==
LOC: FTE 06:53
DX: R10.30 Lower abdominal pain, unspecified (principal); Z72.89 Other problems related to lifestyle
CPT/HCPCS: 96372; 99284; J2270

== ENCOUNTER 2017-06-06 07:51 | Emergency (ER) | payer SELFPAY ==
[~2017-06-06] VITALS: Ht 177.8 cm; Wt 81.1 kg
[~2017-06-06 07:51] MED LIST changes: -morphine 10 MG INJ IM ONE
[2017-06-06 07:53] VITALS: Ht 177.8 cm; Wt 81.1 kg
--- NOTE | 2017-06-06 08:03 | ERD ---
ER Documentation Chief Complaint Chief Complaint ABD PAIN WITH NAUSEA/VOMITING X 2 DAYS HPI 46 y/o male patient with history of chronic functional abdominal pain,presents to the emergency department with his c/o is abdominal pain located in the pelvic area, that started 2 ago. pain is colicky, rated 6/10, radiated to her abdomen. The symptoms are associated with nausea and postprandial vomiting 2 last night. Denies fever, chills, diarrhea or constipation. [+] history of previous episodes, last episode in . Treatment attempted: None ROS SYSTEMIC symptoms: no fever, chills, no night sweats, no weight loss EYE symptoms: No blurred vision, no eye discharge OTOLARYNGEAL symptoms: No hearing loss. No ear pain, no sore throat CARDIOVASCULAR symptoms: No chest pain or discomfort, no palpitations. PULMONARY symptoms: No dyspnea, no cough, no wheezing. GASTROINTESTINAL symptoms: (+) abdominal pain, (+) nausea, (+) vomiting, no diarrhea MUSCULOSKELETAL symptoms: No arthralgias, no muscle aches. NEUROLOGY symptoms: No confusion, no syncope, no numbness or tingling. SKIN no rashes All systems reviewed and are negative except as per history of present illness. Medications Home Meds Active Scripts Hydrocodone/Acetaminophen ([place] 5-325 Tablet) 1 Each Tablet, 1 TAB PO Q12 Y for SEVERE PAIN LEVEL 7-10, #12 TAB Prov:ROSALINA ZAZUETA MD 06/06/17 Hydrocodone/Acetaminophen ([place] 5-325 Tablet) 1 Each Tablet, 1 EACH PO Q6, #20 TAB Prov:JACQUELYN BOONE DO 02/07/17 Allergies Allergies: Coded Allergies: ibuprofen (Unverified Allergy, Unknown, RASH & TONGUE SWELLING, 02/08/17) ketorolac (Unverified Allergy, Unknown, RASH, TONGUE SWELLING, 02/08/17) PMhx/Soc History of Surgery: Yes (appendectomy, back surgeries) Anesthesia Reaction: No Hx Neurological Disorder: No Hx Respiratory Disorders: No Hx Cardiac Disorders: No Hx Psychiatric Problems: No Hx Miscellaneous Medical Probl: No Hx Alcohol Use: No Hx Substance Use: No Hx Tobacco Use: No Physical Exam Vitals Vital Signs Date Time Temp Pulse Resp B/P Pulse Ox O2 Delivery O2 Flow Rate FiO2 06/06/17 07:53 98.6 16 70 163/99 98 Physical Exam Patient is in no acute distress, vital signs stable. Alert and fully oriented. EYES: PERRLA, EOMI, Sclera and conjunctiva appear normal. EARS: Canals clear, tympanic membranes WNL THROAT: Normal oropharynx. NECK: Supple, No lymphadenopathy. Full ROM without pain or tenderness. HEART: RRR, no rubs, murmurs, clicks or gallops. LUNGS: Clear to auscultation. ABDOMEN: Soft, non-tender without masses or hepatosplenomegaly. EXTREMITIES: No edema bilaterally. MUSC: Full ROM, no deformity, normal back exam Results 24 hrs Current Medications Medications (Trade) Dose Ordered Sig/Michelle Route PRN Reason Start Time Stop Time Status Last Admin Dose Admin Acetaminophen/ Hydrocodone Bitart ([place] (5/325)) 1 tab ONCE ONCE PO 06/06/17 08:30 06/06/17 08:31 DC 06/06/17 08:25 Procedures/MDM 46y/o male patient with medical history of chronic abdominal pain with multiple visits to the emergency departments in the area requesting pain medication, presents to the ED c/o abdominal pain nausea and vomiting 2 for 2 days. Vital signs stable, Physical exam unremarkable. Differential diagnosis include but not limited to: Functional abdominal pain, gastroenteritis, chronic pain, opioid dependence. Low suspicion for acute abdomen. Pertinent Data: The patient refused blood work Physical examination and clinical presentation consistent most likely with functional abdominal pain. During the ED course the patient received treatment with [place] presenting overall improvement of the symptoms. Results and medical impression discussed with patient who agrees with management. The patient will be discharged home with a Rx for Eccles #12 Side effects of prescribed narcotic medications (drowsiness, constipation, habituation) were reviewed. If symptoms persist, worsen or new symptoms develop, then patient is instructed to follow-up with the primary care provider. If the patient is unable to see the primary care provider, then return to the ED immediately. Departure Diagnosis: Primary Impression: Abdominal pain Condition: Stable Additional Instructions: Thank you very much for allowing us to participate in your care. Your health and safety is our top priority at [facility]. Have prescriptions filled and follow precisely the directions on the label. Follow-up with primary care provider during the next 4 days and bring all the information and medications prescribed. If illness has not improved in 2 days, then make an appointment with primary care provider. If the provider is unavailable, return to the Emergency Department immediately. ROSALINA ZAZUETA MD Jun 06, 2017 08:03
--- NOTE | 2017-06-06 08:03 | ERD ---
ER Documentation Chief Complaint Chief Complaint ABD PAIN WITH NAUSEA/VOMITING X 2 DAYS HPI 46 y/o male patient with history of chronic functional abdominal pain,presents to the emergency department with his c/o is abdominal pain located in the pelvic area, that started 2 ago. pain is colicky, rated 6/10, radiated to her abdomen. The symptoms are associated with nausea and postprandial vomiting 2 last night. Denies fever, chills, diarrhea or constipation. [+] history of previous episodes, last episode in . Treatment attempted: None ROS SYSTEMIC symptoms: no fever, chills, no night sweats, no weight loss EYE symptoms: No blurred vision, no eye discharge OTOLARYNGEAL symptoms: No hearing loss. No ear pain, no sore throat CARDIOVASCULAR symptoms: No chest pain or discomfort, no palpitations. PULMONARY symptoms: No dyspnea, no cough, no wheezing. GASTROINTESTINAL symptoms: (+) abdominal pain, (+) nausea, (+) vomiting, no diarrhea MUSCULOSKELETAL symptoms: No arthralgias, no muscle aches. NEUROLOGY symptoms: No confusion, no syncope, no numbness or tingling. SKIN no rashes All systems reviewed and are negative except as per history of present illness. Medications Home Meds Active Scripts Hydrocodone/Acetaminophen ([place] 5-325 Tablet) 1 Each Tablet, 1 TAB PO Q12 Y for SEVERE PAIN LEVEL 7-10, #12 TAB Prov:ROSALINA ZAZUETA MD 06/06/17 Hydrocodone/Acetaminophen ([place] 5-325 Tablet) 1 Each Tablet, 1 EACH PO Q6, #20 TAB Prov:JACQUELYN BOONE DO 02/07/17 Allergies Allergies: Coded Allergies: ibuprofen (Unverified Allergy, Unknown, RASH & TONGUE SWELLING, 02/08/17) ketorolac (Unverified Allergy, Unknown, RASH, TONGUE SWELLING, 02/08/17) PMhx/Soc History of Surgery: Yes (appendectomy, back surgeries) Anesthesia Reaction: No Hx Neurological Disorder: No Hx Respiratory Disorders: No Hx Cardiac Disorders: No Hx Psychiatric Problems: No Hx Miscellaneous Medical Probl: No Hx Alcohol Use: No Hx Substance Use: No Hx Tobacco Use: No Physical Exam Vitals Vital Signs Date Time Temp Pulse Resp B/P Pulse Ox O2 Delivery O2 Flow Rate FiO2 06/06/17 07:53 98.6 16 70 163/99 98 Physical Exam Patient is in no acute distress, vital signs stable. Alert and fully oriented. EYES: PERRLA, EOMI, Sclera and conjunctiva appear normal. EARS: Canals clear, tympanic membranes WNL THROAT: Normal oropharynx. NECK: Supple, No lymphadenopathy. Full ROM without pain or tenderness. HEART: RRR, no rubs, murmurs, clicks or gallops. LUNGS: Clear to auscultation. ABDOMEN: Soft, non-tender without masses or hepatosplenomegaly. EXTREMITIES: No edema bilaterally. MUSC: Full ROM, no deformity, normal back exam Results 24 hrs Current Medications Medications (Trade) Dose Ordered Sig/Michelle Route PRN Reason Start Time Stop Time Status Last Admin Dose Admin Acetaminophen/ Hydrocodone Bitart ([place] (5/325)) 1 tab ONCE ONCE PO 06/06/17 08:30 06/06/17 08:31 DC 06/06/17 08:25 Procedures/MDM 46y/o male patient with medical history of chronic abdominal pain with multiple visits to the emergency departments in the area requesting pain medication, presents to the ED c/o abdominal pain nausea and vomiting 2 for 2 days. Vital signs stable, Physical exam unremarkable. Differential diagnosis include but not limited to: Functional abdominal pain, gastroenteritis, chronic pain, opioid dependence. Low suspicion for acute abdomen. Pertinent Data: The patient refused blood work Physical examination and clinical presentation consistent most likely with functional abdominal pain. During the ED course the patient received treatment with [place] presenting overall improvement of the symptoms. Results and medical impression discussed with patient who agrees with management. The patient will be discharged home with a Rx for [place] #12 Side effects of prescribed narcotic medications (drowsiness, constipation, habituation) were reviewed. If symptoms persist, worsen or new symptoms develop, then patient is instructed to follow-up with the primary care provider. If the patient is unable to see the primary care provider, then return to the ED immediately. Departure Diagnosis: Primary Impression: Abdominal pain Condition: Stable Additional Instructions: Thank you very much for allowing us to participate in your care. Your health and safety is our top priority at [facility]. Have prescriptions filled and follow precisely the directions on the label. Follow-up with primary care provider during the next 4 days and bring all the information and medications prescribed. If illness has not improved in 2 days, then make an appointment with primary care provider. If the provider is unavailable, return to the Emergency Department immediately. ROSALINA ZAZUETA MD Jun 06, 2017 08:03
[2017-06-06] MEDS ORDERED: HYDROCODONE/APAP (5/325) TAB PO ONE (08:30)
[2017-06-06] MEDS ORDERED: HYDR-906 PO (08:31)
== END 2017-06-06 09:00 | disposition left against medical advice (07) ==
LOC: FTE 07:51
DX: R10.2 Pelvic and perineal pain (principal)
CPT/HCPCS: 81003; 99283

== ENCOUNTER 2018-01-14 07:00 | Emergency (ER) | END 2018-01-14 08:56 | disposition left against medical advice (07) ==